=== PATIENT | female | born 1980 | race Caucasian/White ===

== ENCOUNTER 2022-02-09 10:13 | Day surgery (SDC) | payer OTHER ==
[2022-02-03 14:37] VITALS: BMI 21.0
[2022-02-09] MEDS ORDERED: oxyCODONE HCL 5 MG TABLET PO PRN (11:41)
[2022-02-09] MEDS ORDERED: ONDANSETRON 4 MG/2 ML VIAL IVPUSH PRN (11:41)
[2022-02-09] MEDS ORDERED: LACTATED RINGERS SOLUTION 1,000 ML IV SCH (11:45)
[2022-02-09] MEDS ORDERED: MIDAZOLAM HCL 2 MG/2 ML SINGLE DOSE VIAL ONE (11:49)
[2022-02-09] MEDS ORDERED: PROPOFOL 20 ML ONE (11:50)
[2022-02-09] MEDS ORDERED: ROCURONIUM BROMIDE 50 MG/5 ML SYRINGE ONE ×3 (11:50→13:24)
[2022-02-09] MEDS ORDERED: BUPIVACAINE HCL 200 ML ONE (11:58)
[2022-02-09] MEDS ORDERED: BUPIVACAINE HCL/PF 0.5% (5 MG/ML) 30 ML VIAL IJ ONE (12:44)
[2022-02-09] MEDS ORDERED: GUM MASTIC/STORAX/MSAL/ALCOHOL 1 DRP DROPSBTL MC ONE (13:17)
[2022-02-09] MEDS ORDERED: SUGAMMADEX SODIUM 200 MG/2 ML VIAL ONE (13:23)
[2022-02-09] MEDS ORDERED: NEOSTIGMINE METHYLSULFATE 0.5 MG/1 ML - 10 ML MDV ONE (13:57)
[2022-02-09] MEDS ORDERED: FENTANYL CITRATE/PF 50 MCG/ML VIAL ONE (14:36)
[2022-02-09] MEDS ORDERED: PROMETHAZINE HCL 25 MG/1 ML VIAL ONE (14:47)
[2022-02-09] MEDS: PROMETHAZINE HCL 25 MG/1 ML VIAL IVPUSH PRN ×2 (14:50→15:45)
[2022-02-09 15:47] VITALS: RESP 16
[2022-02-09 16:33] VITALS: TEMP 98.2
[2022-02-09 17:28] VITALS: BP 98/50; PULSE 72
== END 2022-02-09 17:15 | disposition home or self-care (01) ==
LOC: FASU 10:13
PROVIDERS: ATTEND Surgery Plastic and Reconstructive Surgery
PROC: 0JB80ZZ Excision of Abdomen Subcutaneous Tissue and Fascia, Open Approach (ICD-10-PCS; principal; 2022-02-09 12:30)
DX: R63.4 Abnormal weight loss (principal); L98.7 Excessive and redundant skin and subcutaneous tissue; M62.08 Separation of muscle (nontraumatic), other site; Z68.21 Body mass index [BMI] 21.0-21.9, adult
CPT/HCPCS: 84703; 88304-TC; 94760